=== PATIENT | female | born 2000 | race Caucasian/White ===

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

== ENCOUNTER 2023-06-01 18:33 | Emergency (ER) | payer MEDICAID, OTHER ==
[~2023-06-01] VITALS: Ht 167.6 cm; Wt 72.0 kg
[2023-06-01 18:37] VITALS: BP 119/83; PULSE 113; RESP 20; TEMP 98.3; O2SAT 100
[2023-06-01] MEDS ORDERED: ONDANSETRON 4MG ODT PO STA (18:47)
[2023-06-01] MEDS ORDERED: MAGNESIUM/ALUMINUM HYDROXIDE/SIMETHICONE 30ML UDC PO STA (18:47)
[2023-06-01] MEDS ORDERED: DICYCLOMINE 10 MG/5 ML ORAL SYR PO STA (18:47)
[2023-06-01] MEDS ORDERED: ACETAMINOPHEN 325MG TABLET PO STA (18:47)
[2023-06-01 19:23] LABS: BASOPHILS % 0.9 % (0.0-2.0); EOSINOPHILS % 1.4 % (0.0-5.0); HEMATOCRIT. 43.5 % (36.0-48.0); HEMOGLOBIN. 15.2 g/dL (12.0-16.0); LYMPHOCYTES % 30.9 % (20.0-50.0); MEAN CORPUSCULAR HEMOGLOBIN 30.3 pg (28.0-32.0); MEAN CORPUSCULAR VOLUME 86.6 fL (81.0-99.0); MEAN PLATELET VOLUME 8.3 fl (7.4-10.4); MONOCYTES % 8.6 % (2.0-8.0); NEUTROPHILS % 58.2 % (40.0-76.0); PLATELET 316 x1000/uL (130-400); RED BLOOD CELL COUNT 5.02 mill/uL (4.2-5.4); RED CELL DISTRIBUTION WIDTH 13.3 % (11.6-14.6); WHITE BLOOD COUNT 5.3 x1000/uL (4.5-11.0)
[2023-06-01 19:23] LABS: CLARITY URINE CLOUDY (CLEAR); COLOR URINE DARK YELLOW (YELLOW); GLUCOSE URINE NEGATIVE (NEGATIVE); KETONES URINE TRACE (NEGATIVE); LEUKOCYTE ESTERASE URINE 1+ (NEGATIVE); NITRITE URINE NEGATIVE (NEGATIVE); OCCULT BLOOD URINE 2+ (NEGATIVE); PROTEIN URINE 1+ (NEGATIVE); SPECIFIC GRAVITY URINE 1.035 (1.005-1.030)
[2023-06-01 19:30] LABS: HCG SCREEN NEGATIVE
[2023-06-01 19:35] LABS: ALANINE AMINOTRANSFERASE 15 IU/L (10-49); ALBUMIN 4.4 g/dL (3.2-4.8); ASPARTATE AMINOTRANSFERASE 20 IU/L (<34); BILIRUBIN TOTAL 0.4 mg/dL (0.1-1.0); CALCIUM 9.2 mg/dL (8.7-10.4); CARBON DIOXIDE 26 mEq/L (21-32); CHLORIDE 106 mEq/L (98-107); CREATININE 0.7 mg/dL (0.6-1.0); GLUCOSE 92 mg/dL (70-105); POTASSIUM 3.2 mEq/L (3.5-5.1); PROTEIN TOTAL 7.9 g/dL (6.0-8.3); SODIUM 140 mEq/L (136-145); UREA NITROGEN BLOOD 9 mg/dL (9-23)
[2023-06-01 19:58] LABS: BACTERIA URINE 1+; SQUAMOUS EPITHELIAL CELL URINE 3+ /lpf (RARE/1+)
[2023-06-01] MEDS ORDERED: CEFP200T13 MT (20:31)
[2023-06-01] MEDS ORDERED: FAMO20TA8 MT (20:31)
[2023-06-01] MEDS ORDERED: ONDA4TAB50 MT (20:31)
[2023-06-01] MEDS ORDERED: ONDANSETRON 4MG ODT PO NR (21:00)
[2023-06-01] MEDS ORDERED: ACETAMINOPHEN 325MG TABLET PO NR (21:00)
== END 2023-06-01 21:06 | disposition home or self-care (01) ==
LOC: ER 18:33
DX: R11.10 Vomiting, unspecified (principal); N39.0 Urinary tract infection, site not specified
CPT/HCPCS: 99283; 80053; 81003; 81025; 84703; 83690; 85025; 36415; Q0162

== ENCOUNTER 2023-10-02 17:24 | Emergency (ER) | payer SELFPAY ==
[~2023-10-02] VITALS: Ht 160 cm; Wt 70.0 kg
[~2023-10-02 17:24] MED LIST: CEFP200T13 MT; FAMO20TA8 MT; ONDA4TAB50 MT
[2023-10-02 17:25] VITALS: O2SAT 100
[2023-10-03 00:03] LABS: CLARITY URINE CLEAR (CLEAR); COLOR URINE YELLOW (YELLOW); GLUCOSE URINE NEGATIVE (NEGATIVE); KETONES URINE TRACE (NEGATIVE); LEUKOCYTE ESTERASE URINE 2+ (NEGATIVE); NITRITE URINE NEGATIVE (NEGATIVE); OCCULT BLOOD URINE TRACE (NEGATIVE); PH URINE 6.5 (4.5-8.0); PROTEIN URINE TRACE (NEGATIVE); SPECIFIC GRAVITY URINE 1.026 (1.005-1.030)
[2023-10-03] MEDS ORDERED: CEPH500C2 MT (00:18)
[2023-10-03 00:28] VITALS: BP 108/66; PULSE 79; RESP 19; TEMP 98.6
[2023-10-03 04:37] LABS: SQUAMOUS EPITHELIAL CELL URINE FEW /lpf (RARE/1+)
[2023-10-03 04:38] LABS: RBC URINE 0-2 /hpf (0-2); WBC URINE 25-50 /hpf (0-2)
[2023-10-03 04:40] LABS: BACTERIA URINE NONE SEEN
== END 2023-10-03 00:30 | disposition home or self-care (01) ==
LOC: ER 17:24
DX: N39.0 Urinary tract infection, site not specified (principal)
CPT/HCPCS: 81003; 81025; 87077; 87186; 99283